=== PATIENT | female | born 1960 | race Caucasian/White ===

== ENCOUNTER → 2018-01-23 | Day surgery (SDC) | payer OTHER ==
[~2018-01-23] MED LIST: AZOR 5-20 MG T1 EACH; CELEBREX PO; FENTANYL CITRATE/PF 100MCG/2 ML INJ ONE; HYOSCYAMINE SULFATE 0.5 MG/ML INJ ONE; METFORMIN HCL500 MG PO; MIDAZOLAM HCL 2 MG/2 ML VIAL ONE; PROPOFOL IV EMULSION 10 MG/ML 50 ML VIAL ONE; TRIBENZOR PO
--- OUTSIDE RECORDS SUMMARY | 2018-01-23 05:58 | XMS REPORT | Clinical Summary ---
Author Author [facility] Organization [facility] Address Unknown Phone Unavailable Care Team Providers Care It Project Lead Name Role Phone Anastacia Turpin DO PCP Allergies No Known Allergies Medications End Date Status Medication Sig Dispensed Refills Start Date Active amlodipine-olmesartan Take 1 tablet 0 (DEBORA) 5-20 mg per tablet by mouth daily. Active metFORMIN (GLUCOPHAGE) Take 1,000 mg 0 1,000 mg tablet by mouth every evening. Active celecoxib (CeleBREX) 100 Take 100 mg 0 MG capsule by mouth as needed for mild pain. Active fluticasone (FLONASE) 50 2 sprays by 0 mcg/actuation nasal spray Each Nare route as needed for rhinitis. Active fexofenadine HCl (BILL Take by mouth 0 ORAL) as needed. 10/20/2017 Discontinued meloxicam (MOBIC) 15 mg Take 1 tablet 30 tablet 2 tablet (15 mg total) 8 by mouth daily. Start the Mobic AFTER you finish the Medrol Dose Dee 09/12/2017 methylPREDNISolone Take as 21 tablet 0 (MEDROL, DEE,) 4 mg directed 8 tablet Dispense 1 pack 11/02/2017 Discontinued HYDROcodone-acetaminophen Take 1 tablet 40 tablet 0 (NORCO) 10-325 mg per by mouth 8 tablet every 4 (four) hours as needed for severe pain for up to 30 days. Max Daily Amount: 6 tablets 10/27/2017 cephalexin (KEFLEX) 500 Take 1 8 capsule 0 MG capsule capsule (500 8 mg total) by mouth every 6 (six) hours for 2 days. To begin after surgery 11/24/2017 ondansetron ODT (ZOFRAN Take 1 tablet 30 tablet 1 ODT) 4 MG disintegrating (4 mg total) 8 tablet by mouth every 8 (eight) hours as needed for nausea or vomiting for up to 30 days. 12/02/2017 HYDROcodone-acetaminophen Take 1-2 50 tablet 0 (NORCO) 5-325 mg per tablets by 8 tablet mouth every 4 (four) hours as needed for moderate pain for up to 30 days. Max Daily Amount: 12 tablets Active Problems Problem Noted Date Impingement syndrome of left shoulder 10/06/2017 Overview: Added automatically from request for surgery [id number] Sprain of left rotator cuff capsule 10/06/2017 Overview: Added automatically from request for surgery [id number] Complete tear of left rotator cuff 08/01/2017 Kidney stones Wears glasses Dental crowns present Encounters Care Team Description Date Type Specialty Nahid Piper MD Impingement syndrome of left shoulder (Primary Dx) 11/28/2017 Office Visit Orthopedic Surgery Bigg Moore PA Impingement syndrome of left shoulder (Primary Dx) 11/02/2017 Office Visit Orthopedic Surgery Tamra Renner FNP 10/26/2017 Anesthesia General Surgery Event Nahid Piper MD Left Arthroscopy of the Shoulder with Decompression, Acromioclavicular Resection, Biceps Tenolysis 10/26/2017 Surgery General Surgery Nahid Piper MD 10/26/2017 Hospital General Surgery Encounter Bigg Moore PA 10/25/2017 Orders Only Orthopedic Surgery Neetu Toro MA 10/25/2017 Orders Only Orthopedic Surgery Nahid Piper MD Preoperative testing (Primary Dx) 10/20/2017 Pre-Admit Pre-Admission Testing Testing Appointment Jorge L Joseph MA Sprain of left rotator cuff capsule, initial encounter (Primary Dx) 10/10/2017 Orders Only Orthopedic Surgery Nahid Piper MD Impingement syndrome of left shoulder (Primary Dx); Arthrosis of left acromioclavicular joint; Labral tear of long head of biceps tendon, left, subsequent encounter 10/06/2017 Office Visit Orthopedic Surgery Nahid Piper MD Impingement syndrome of left shoulder (Primary Dx); Sprain of left rotator cuff capsule, initial encounter 10/06/2017 Transcribe Orthopedic Surgery Orders Nahid Piper MD Impingement syndrome of left shoulder (Primary Dx) 09/05/2017 Office Visit Orthopedic Surgery Nahid Piper MD Complete tear of left rotator cuff 08/08/2017 Hospital Radiology Encounter Nahid Piper MD Complete tear of left rotator cuff 08/08/2017 Hospital Radiology Encounter Reanna Espino MA Complete tear of left rotator cuff (Primary Dx) 08/08/2017 Orders Only Orthopedic Surgery Nahid Piper MD Complete tear of left rotator cuff (Primary Dx); Acute pain of left shoulder 08/01/2017 Office Visit Orthopedic Surgery after 01/22/2017 Family History Medical History Relation Name Comments Diabetes Father Osamny Olmos Diabetes Sister Michelle Weston Relation Name Status Comments Father Osmany Olmos Sister Michelle Weston Social History Date Tobacco Use Types Packs/Day Years Used Former Smoker Cigars Smokeless Tobacco: Never Used Comments: Ocassionally when I play golf-SMOKES CIGAR Alcohol Use Drinks/Week oz/Week Comments Yes OCCASIONAL Sex Assigned at Date Recorded Not on file Industry Job Start Date Occupation Not on file Not on file Not on file Travel End Travel History Travel Start No recent travel history available. Last Filed Vital Signs Time Taken Vital Sign Reading 10/26/2017 12:26 PM CDT Blood Pressure 118/78 10/26/2017 12:26 PM CDT Pulse 90 10/26/2017 11:46 AM CDT Temperature 36.1 C (97 F) 10/26/2017 12:26 PM CDT Respiratory Rate 17 10/26/2017 12:26 PM CDT Oxygen Saturation 96% - Inhaled Oxygen - Concentration 10/26/2017 7:32 AM CDT Weight 72.6 kg (160 lb) 10/26/2017 7:32 AM CDT Height 147.3 cm (4' 10") 10/26/2017 7:32 AM CDT Body Mass Index 33.44 Plan of Treatment Health Maintenance Due Date Last Done Comments CERVICAL CANCER SCREENING 1979 BREAST CANCER SCREENING 01/13/2008 COLON CANCER SCREENING 01/13/2008 SHINGRIX VACCINE (1 of 2) 01/13/2008 ZOSTER VACCINE 2018 INFLUENZA VACCINE Completed 12/07/2017 HEPATITIS B VACCINES Aged Out No longer eligible based on patient's age to complete this topic IPV VACCINES Aged Out No longer eligible based on patient's age to complete this topic MENINGOCOCCAL VACCINE Aged Out No longer eligible based on patient's age to complete this topic Procedures Comments Procedure Name Priority Date/Time Associated Diagnosis POC GLUCOSE Routine 10/26/2017 10:30 AM CDT CA AN ELECTIVE Routine 10/26/2017 ENDOTRACHEAL AIRWAY 9:31 AM CDT Procedure Note - Ellen Miranda CRNA - 10/26/2017 9:31 AM CDT Airway Date/Time: 10/26/2017 9:31 AM Performed by: ELLEN MIRANDA Authorized by: DORA MICHAEL Location: OR Urgency: Elective Difficult Airway: Yes Preoxygena zen with 100% O2: Yes C-spine Precaution s Maintained Throughout : Yes Mask Ventilatio n: Easy mask Final Airway Type: Endotrache al airway Final Endotrache al Airway: ETT Cuffed: Yes Technique Used: Video laryngosco py Devices/Me thods Used in Placement: Intubatin g stylet Insertion Site: Oral Laryngosco pe Blade/Vide olaryngosc ope Blade Size: 3 ETT Size (mm): 7.0 Cuff at minimum occlusion pressure: Yes Measured from: Lips ETT to Lips (cm): 21 Placement Verified by: CO2 detection, direct visualizat ion and equal breath sounds Laryngosco pic view: Grade I - full view of glottis Rapid Sequence Induction (RSI): No Modified RSI: No Number of Attempts at Approach: 2 Very difficult to advance ETT to get to cords. Very curved anatomy. No bleeding or trauma to mouth/thro at. Final attempt successful with video guidance - regular extreme curved stylet... Once tube and cords visualized with glide scope (all in view) stylet exchanged to [place] Scope stylet for control. Tube then turned and advanced into cords with stylet control. O2 sat remained at 100%. POC GLUCOSE Routine 10/26/2017 7:48 AM CDT ZZESTIMATED GFR Routine 10/20/2017 1:39 PM CDT BASIC METABOLIC PANEL Routine 10/20/2017 Preoperative testing 1:39 PM CDT HC COMPLETE BLD COUNT Routine 10/20/2017 Preoperative testing W/AUTO DIFF 1:39 PM CDT ECG PRE/POST OP Routine 10/20/2017 Preoperative testing 12:45 PM CDT MRI SHOULDER W CONTRAST Routine 08/08/2017 Complete tear of left LEFT 11:42 AM CDT rotator cuff FL ARTHROGRAM SHOULDER Routine 08/08/2017 Complete tear of left LEFT 11:02 AM CDT rotator cuff XR SHOULDER 2+ VW LEFT Routine 08/01/2017 Acute pain of left 2:07 PM CDT shoulder after 01/22/2017 Results * POC glucose (10/26/2017 10:30 AM CDT) Only the most recent of 2 results within the time period is included. POC glucose 150 (H) 65 - 99 mg/dL [facility] DEPARTMENT OF Comment: PATHOLOGY AND Meter ID: [id number] GENOMIC MEDICINE [employer] Consultant: Sg Antonio Performing Organization Address City/[facility] Hospital[facility] [place] [address] PATHOLOGY AND GMI Ratings [facility] * Estimated GFR (10/20/2017 1:39 PM CDT) GFR Non Af Amer 57 (A) mL/min/1.73 m2 [facility] DEPARTMENT OF PATHOLOGY AND GENOMIC MEDICINE GFR Af Amer 69 mL/min/1.73 m2 [facility] DEPARTMENT OF Comment: PATHOLOGY AND Chronic kidney disease: <60 GENOMIC MEDICINE mL/min/1.73m2 Kidney failure: <15 mL/min/1.73m2 The estimated GFR is calculated from the IDMS-traceable Modification of Diet in Renal Disease Equation. The accuracy of the calculation is poor when the creatinine is normal. Calculated values >90 mL/min/1.73m2 are not reported. This equation has not been validated in children (<18 years), women, the elderly (>70 years), or ethnic groups other than Caucasians and Americans. Specimen Plasma specimen Performing Organization Address City/[facility] Phone Number [address] [address] PATHOLOGY AND GMI Ratings MEDICINE * CBC with platelet and differential (10/20/2017 1:39 PM CDT) WBC 9.9 4.5 - 11.0 k/uL [facility] DEPARTMENT OF PATHOLOGY AND GENOMIC MEDICINE RBC 4.17 (L) 4.20 - 5.50 m/uL [facility] DEPARTMENT OF PATHOLOGY AND GENOMIC MEDICINE HGB 12.7 12.0 - 16.0 g/dL [facility] DEPARTMENT OF PATHOLOGY AND GENOMIC MEDICINE HCT 38.2 37.0 - 47.0 % [facility] DEPARTMENT OF PATHOLOGY AND GENOMIC MEDICINE MCV 91.6 82.0 - 100.0 fL [facility] DEPARTMENT OF PATHOLOGY AND GENOMIC MEDICINE MCH 30.5 27.0 - 34.0 pg [facility] DEPARTMENT OF PATHOLOGY AND GENOMIC MEDICINE MCHC 33.2 31.0 - 37.0 g/dL [facility] DEPARTMENT OF PATHOLOGY AND GENOMIC MEDICINE RDW - SD 47.3 37.0 - 55.0 fL [facility] DEPARTMENT OF PATHOLOGY AND GENOMIC MEDICINE MPV 10.6 6.9 - 11.0 fL [facility] DEPARTMENT OF PATHOLOGY AND GENOMIC MEDICINE Platelet count 353 150 - 400 K/uL [facility] DEPARTMENT OF PATHOLOGY AND GENOMIC MEDICINE Nucleated RBC 0.00 /100 WBC [facility] DEPARTMENT OF PATHOLOGY AND GENOMIC MEDICINE Neutrophils 60.6 39.0 - 69.0 % [facility] DEPARTMENT OF PATHOLOGY AND GENOMIC MEDICINE Lymphocytes 28.6 25.0 - 45.0 % [facility] DEPARTMENT OF PATHOLOGY AND GENOMIC MEDICINE Monocytes 6.6 0.0 - 10.0 % [facility] DEPARTMENT OF PATHOLOGY AND GENOMIC MEDICINE Eosinophils 3.1 0.0 - 5.0 % [facility] DEPARTMENT OF PATHOLOGY AND GENOMIC MEDICINE Basophils 0.6 0.0 - 1.0 % [facility] DEPARTMENT OF PATHOLOGY AND GENOMIC MEDICINE Immature granulocytes 0.5 0.0 - 1.0 % [facility] DEPARTMENT OF PATHOLOGY AND GENOMIC MEDICINE Specimen Blood Performing Organization Address City/State/Zipcode Phone Number [phone] [place] [address] PATHOLOGY AND GENOMIC MEDICINE * Basic metabolic panel (10/20/2017 1:39 PM CDT) Sodium 146 135 - 148 mEq/L [facility] DEPARTMENT OF PATHOLOGY AND GENOMIC MEDICINE Potassium 4.4 3.5 - 5.0 mEq/L [facility] DEPARTMENT OF PATHOLOGY AND GENOMIC MEDICINE Chloride 105 98 - 112 mEq/L [facility] DEPARTMENT OF PATHOLOGY AND GENOMIC MEDICINE CO2 28 24 - 31 mEq/L [facility] DEPARTMENT OF PATHOLOGY AND GENOMIC MEDICINE Anion gap 13@ANIO 7 - 15 mEq/L [facility] DEPARTMENT OF PATHOLOGY AND GENOMIC MEDICINE BUN 13 6 - 20 mg/dL [facility] DEPARTMENT OF PATHOLOGY AND GENOMIC MEDICINE Creatinine 1.0 (H) 0.5 - 0.9 mg/dL [facility] DEPARTMENT OF PATHOLOGY AND GENOMIC MEDICINE Glucose 125 (H) 65 - 99 mg/dL [facility] DEPARTMENT OF PATHOLOGY AND GENOMIC MEDICINE Calcium 10.0 8.3 - 10.2 mg/dL [facility] DEPARTMENT OF PATHOLOGY AND GENOMIC MEDICINE Specimen Plasma specimen Performing Organization Address City/State/Zipcode Phone Number [place] [place] [address] [place] [address] PATHOLOGY AND GENOMIC MEDICINE * ECG Pre/Post Op (10/20/2017 12:45 PM CDT) Ventricular rate 82 [facility] Atrial rate 82 [facility] CA interval 188 [facility] QRSD interval 64 [facility] QT interval 364 [facility] QTC interval 425 [facility] P axis 1 44 [facility] QRS axis 1 -5 [facility] T wave axis 44 [facility] EKG impression Normal sinus rhythm-Inferior [facility] MUSE infarct , age undetermined-Anterolateral infarct , age undetermined-Abnormal ECG-No previous ECGs available- Performing Organization Address City/[facility] Phone Number [facility] M[facility] [address] [place] [address] * MRI Shoulder W Contrast Left (08/08/2017 11:42 AM CDT) Narrative Performed At RADIANT EXAMINATION:MRI SHOULDER W CONTRAST LEFT CLINICAL HISTORY:M75.122 Complete rotator cuff tear or rupture of left shouldernot specified as traumatic, panm TECHNIQUE:Multiplanar multisequence MR imaging of the left shoulder was performed following dilute intra-articular administration of gadolinium. COMPARISON:None. IMPRESSION: ROTATOR CUFF: Intact. There is no evidence of rotator cuff tear. LABRUM: There is a type II SLAP tear present. Remaining portions of the labrum appear intact. BICEPS TENDON: The long head of the biceps tendon is within the bicipital groove. The biceps labral complex is intact. AC JOINT: Moderate arthrosis with inferior spurs. GLENOHUMERAL JOINT: No focal abnormality. BONE MARROW: Tiny cysts in humeral head. No fracture. SOFT TISSUES: There is no focal soft tissue mass or signal abnormality. [facility]-[id number] Procedure Note Interface, Radiology Results Incoming - 08/08/2017 11:54 AM CDT EXAMINATION: MRI SHOULDER W CONTRAST LEFT CLINICAL HISTORY: M75.122 Complete rotator cuff tear or rupture of left shoulder not specified as traumatic, panm TECHNIQUE: Multiplanar multisequence MR imaging of the left shoulder was performed following dilute intra-articular administration of gadolinium. COMPARISON: None. IMPRESSION: ROTATOR CUFF: Intact. There is no evidence of rotator cuff tear. LABRUM: There is a type II SLAP tear present. Remaining portions of the labrum appear intact. BICEPS TENDON: The long head of the biceps tendon is within the bicipital groove. The biceps labral complex is intact. AC JOINT: Moderate arthrosis with inferior spurs. GLENOHUMERAL JOINT: No focal abnormality. BONE MARROW: Tiny cysts in humeral head. No fracture. SOFT TISSUES: There is no focal soft tissue mass or signal abnormality. [facility]-[id number] Performing Organization Address City/State/Zipcode Phone Number [facility] [address] [place] [address] * FL Arthrogram Shoulder Left (08/08/2017 11:02 AM CDT) Narrative Performed At EXAMINATION:FL ARTHROGRAM SHOULDER LEFT [facility] CLINICAL HISTORY:M75.122 Complete rotator cuff tear or rupture of left shouldernot specified as traumatic, left shoulder pain COMPARISON:None. FLUOROSCOPY TIME: 0.8 minutes Number of fluoroscopic images: 4 Procedure: The procedure was discussed with the patient and they agreed to proceed. The skin overlying the left shoulder was prepped and draped in the usual sterile fashion. After local administration of 1% buffered lidocaine, a 22G needle was inserted into the joint and a dilute mixture of gadolinium and iodinated contrast was injected. The patient tolerated the procedure without difficulty and no complications were encountered. The patient was discharged to the MR suite for subsequent MR arthrography. Additional Information: Post injection fluoroscopic films demonstrate no findings to suggest a full-thickness rotator cuff tear. IMPRESSION: Successful left glenohumeral injection for MR arthrography. [facility]-[id number] Procedure Note Interface, Radiology Results [facility] - 08/08/2017 11:11 AM CDT EXAMINATION: FL ARTHROGRAM SHOULDER LEFT CLINICAL HISTORY: M75.122 Complete rotator cuff tear or rupture of left shoulder not specified as traumatic, left shoulder pain COMPARISON: None. FLUOROSCOPY TIME: 0.8 minutes Number of fluoroscopic images: 4 Procedure: The procedure was discussed with the patient and they agreed to proceed. The skin overlying the left shoulder was prepped and draped in the usual sterile fashion. After local administration of 1% buffered lidocaine, a 22G needle was inserted into the joint and a dilute mixture of gadolinium and iodinated contrast was injected. The patient tolerated the procedure without difficulty and no complications were encountered. The patient was discharged to the MR suite for subsequent MR arthrography. Additional Information: Post injection fluoroscopic films demonstrate no findings to suggest a full-thickness rotator cuff tear. IMPRESSION: Successful left glenohumeral injection for MR arthrography. [facility]-[id number] Performing Organization Address City/[facility] Phone Number [facility] [address] [place] [address] * XR Shoulder 2+ Vw Left (08/01/2017 2:07 PM CDT) Narrative Performed At [facility] 3 views (AP, scapular Y, axillary) of the left shoulder(s) reveal no evidence of any fracture, dislocation, or any other acute osseous abnormalities. Performing Organization Address [facility] Phone Number [facility] [address] [place] [address] after 01/22/2017 Insurance Payer Benefit Subscriber ID Type Phone Address Plan / Group [facility] xxxxxxxxx HMO/PPO THCARE CHOICE/CHO ICE + Advance Directives Patient has advance care planning documents on file. For more information, vitor eagle contact: Hector Mazariegos [address] [place] [address]
[2018-01-23 09:20] VITALS: BP 105/73
--- NOTE | 2018-01-23 10:12 | Operative Report ---
DATE OF PROCEDURE: January 23, 2018 REFERRING PHYSICIAN: Dioni Turpin DO PROCEDURE PERFORMED: Colonoscopy with polypectomy. INDICATIONS FOR COLONOSCOPY: Surveillance colonoscopy, personal history of colon polyps. MEDICATION: Patient was done under MAC. Please see anesthesiologist's note. PROCEDURE: With the patient in the left lateral decubitus position, the flexible fiberoptic Olympus colonoscope was inserted into the rectum with ease and advanced all the way to the cecum. The scope was then withdrawn slowly. Mucosa overlying the cecum, ascending colon and transverse colon appeared to be within normal limits. One polyp was hot biopsied and one polyp was snared from the descending colon. Diverticular disease was noted in the distal descending and sigmoid colon. Two polyps were hot biopsied from the sigmoid and one polyp was hot biopsied from the rectum. The scope was then retroflexed into the distal rectum, and small internal hemorrhoids were noted, none of which was actively bleeding. The scope was then straightened out. It was subsequently withdrawn. Patient tolerated the procedure well. IMPRESSION 1. Descending colon polyps times 2, one hot and one snared. 2. Diverticulosis. 3. Sigmoid colon polyps times 2, hot biopsied. 4. Rectal polyp times 1, hot biopsied. 5. Internal hemorrhoids, none actively bleeding. PLAN: Follow up histology. Initiate high-fiber, low-fat diet. Initiate high-fiber supplement. Patient might need a followup colonoscopy in 3 years. Job#: [id number] cc:DIONI TURPIN DO
== END | disposition home or self-care (01) ==
LOC: OR 05:56
PROVIDERS: ATTEND Internal Medicine Gastroenterology
DX: Z09 Encounter for follow-up examination after completed treatment for conditions other than malignant neoplasm (principal); D12.4 Benign neoplasm of descending colon; D12.5 Benign neoplasm of sigmoid colon; K62.1 Rectal polyp; K57.30 Diverticulosis of large intestine without perforation or abscess without bleeding; K64.8 Other hemorrhoids; K21.9 Gastro-esophageal reflux disease without esophagitis; I25.10 Atherosclerotic heart disease of native coronary artery without angina pectoris; I25.2 Old myocardial infarction; E28.2 Polycystic ovarian syndrome; I10 Essential (primary) hypertension; E66.8 Other obesity; Z88.8 Allergy status to other drugs, medicaments and biological substances; Z01.810 Encounter for preprocedural cardiovascular examination; Z79.84 Long term (current) use of oral hypoglycemic drugs; Z68.32 Body mass index [BMI] 32.0-32.9, adult; Z87.442 Personal history of urinary calculi
CPT/HCPCS: 45384; 45385; 93005; J1980; J2250; 45378

== ENCOUNTER → 2020-05-27 | Outpatient (CLI) | payer BC ==
[~2020-05-27] MED LIST changes: -FENTANYL CITRATE/PF 100MCG/2 ML INJ ONE; -HYOSCYAMINE SULFATE 0.5 MG/ML INJ ONE; -MIDAZOLAM HCL 2 MG/2 ML VIAL ONE; -PROPOFOL IV EMULSION 10 MG/ML 50 ML VIAL ONE
== END ==
LOC: RAD 15:59
PROVIDERS: ATTEND Internal Medicine Gastroenterology
DX: K59.09 Other constipation (principal); R10.32 Left lower quadrant pain
CPT/HCPCS: 74018

== ENCOUNTER → 2020-06-23 | Day surgery (SDC) | payer BC ==
[2020-06-19 12:07] LABS: BASOPHILS # (AUTO) 0.1 (0.0-0.1); BASOPHILS % 0.7 % (0.0-1.0); EOSINOPHILS # (AUTO) 0.6 (0.0-0.4); HEMATOCRIT 36.2 % (34.2-44.1); HEMOGLOBIN 11.8 g/dL (12.0-16.0); LYMPHOCYTES # (AUTO) 3.7 (1.0-3.2); LYMPHOCYTES % 32.9 % (18.0-39.1); MEAN CORPUSCULAR HEMOGLOBIN 29.1 pg (28-32); MEAN CORPUSCULAR HGB CONC 32.6 g/dL (31-35); MEAN CORPUSCULAR VOLUME 89.4 fL (81-99); MONOCYTES # (AUTO) 0.8 (0.2-0.8); MONOCYTES % 7.3 % (4.4-11.3); NEUTROPHILS % 53.5 % (38.7-80.0); PLATELET COUNT 297 x10e3/uL (140-360); RED BLOOD COUNT 4.05 x10e6/uL (3.6-5.1); RED CELL DISTRIBUTION WIDTH 14.7 % (11.7-14.4)
[~2020-06-23] MED LIST changes: +CRESTOR10 MG PO; +HYOSCYAMINE SULFATE 0.5 MG/ML INJ ONE; +PROPOFOL IV EMULSION 10 MG/ML 20 ML VIAL ONE; +PROTONIX20 MG PO
[2020-06-23 09:40] VITALS: BP 110/60
[2020-06-23 10:24] LABS: % IRON SATURATION 16 % (15-50); IRON 58 ug/dL (50-170); TOTAL IRON BINDING CAPACITY 374 ug/dL (261-478); TRANSFERRIN 267 mg/dL (180-382)
== END | disposition home or self-care (01) ==
LOC: OR 06:59
PROVIDERS: ATTEND Internal Medicine Gastroenterology
DX: K59.09 Other constipation (principal); I10 Essential (primary) hypertension; Z86.010 Personal history of colon polyps; E66.8 Other obesity; E11.9 Type 2 diabetes mellitus without complications; K21.9 Gastro-esophageal reflux disease without esophagitis; I25.2 Old myocardial infarction; Z01.810 Encounter for preprocedural cardiovascular examination; Z01.812 Encounter for preprocedural laboratory examination; Z20.822 Contact with and (suspected) exposure to COVID-19; Z68.33 Body mass index [BMI] 33.0-33.9, adult; K57.30 Diverticulosis of large intestine without perforation or abscess without bleeding; K64.8 Other hemorrhoids; K62.89 Other specified diseases of anus and rectum; Z79.84 Long term (current) use of oral hypoglycemic drugs
CPT/HCPCS: 36415 ×2; 45378; 82607; 82746; 83540; 84466; 85025; 85045; 93005; J1980; J2704; U0002

== ENCOUNTER → 2024-04-02 | Day surgery (SDC) | payer BC ==
[2024-03-29 10:06] LABS: BASOPHILS # (AUTO) 0.1 (0.0-0.1); EOSINOPHILS # (AUTO) 0.5 (0.0-0.4); EOSINOPHILS % 5.2 % (0.0-6.0); HEMATOCRIT 34.1 % (34.2-44.1); HEMOGLOBIN 11.2 g/dL (12.0-16.0); LYMPHOCYTES % 29.8 % (18.0-39.1); MEAN CORPUSCULAR HEMOGLOBIN 30.1 pg (28-32); MEAN CORPUSCULAR HGB CONC 32.8 g/dL (31-35); MEAN CORPUSCULAR VOLUME 91.7 fL (81-99); MONOCYTES # (AUTO) 0.7 (0.2-0.8); MONOCYTES % 7.4 % (4.4-11.3); NEUTROPHILS # (AUTO) 5.6 (2.1-6.9); NEUTROPHILS % 56.1 % (38.7-80.0); PLATELET COUNT 320 x10e3/uL (140-360); RED BLOOD COUNT 3.72 x10e6/uL (3.6-5.1); RED CELL DISTRIBUTION WIDTH 13.4 % (11.7-14.4); WHITE BLOOD COUNT 9.98 x10e3/uL (4.8-10.8)
[~2024-04-02] MED LIST changes: +CALCIUM ACETAT667 MG PO; +CELEBREX200 MG PO; +D3-5000125 MCG; +DEXMEDETOMIDINE HCL 2 ML ONE; +FARXIGA5 MG PO; -HYOSCYAMINE SULFATE 0.5 MG/ML INJ ONE; +LABETALOL HCL 0 ML ONE; +LIDOCAINE HCL 2% LOCAL INJ 5 ML SDV VIAL INJ ONE; +METOCLOPRAMIDE HCL 10 MG/2ML VIAL ONE; +ONDANSETRON HCL INJ 2MG/ML 2ML 2 MG/ML VIAL ONE; -PROPOFOL IV EMULSION 10 MG/ML 20 ML VIAL ONE; +PROPOFOL IV EMULSION 50 ML IV ONE; +PROVENTIL HFA6.7 GM INH; +SODIUM CHLORIDE 0.9% 100 ML ONE
[2024-04-02] MEDS: LACTATED RINGER'S 1,000 ML ONE (06:15)
[2024-04-02 08:45] VITALS: BP 105/46; PULSE 72; RESP 16; TEMP 97.2; O2SAT 99
[2024-04-05 08:10] LABS: ENDOMYSIAL ANTIBODIES, IGA Negative (Negative)
[2024-04-05 13:49] LABS: IMMUNOGLOBULIN A 193 mg/dL (87-352); TISSUE TRANSGLUTAMINASE IGA AB <2 U/mL (0-3)
== END | disposition home or self-care (01) ==
LOC: OR 05:22
PROVIDERS: ATTEND Internal Medicine Gastroenterology
DX: K29.70 Gastritis, unspecified, without bleeding (principal); K20.90 Esophagitis, unspecified without bleeding; K21.9 Gastro-esophageal reflux disease without esophagitis; Z86.0100 Personal history of colon polyps, unspecified; R63.4 Abnormal weight loss; I25.10 Atherosclerotic heart disease of native coronary artery without angina pectoris; I10 Essential (primary) hypertension; E78.5 Hyperlipidemia, unspecified; I25.2 Old myocardial infarction; J45.909 Unspecified asthma, uncomplicated; M06.9 Rheumatoid arthritis, unspecified; Z01.810 Encounter for preprocedural cardiovascular examination; Z01.812 Encounter for preprocedural laboratory examination; Z79.899 Other long term (current) drug therapy
CPT/HCPCS: 36415; 43239; 82784; 83516; 85025; 86256; 93005; J2003; J2405; J2470; J2704; J2765; J7050; J7121